=== PATIENT | female | born 1935 | race American Indian/Alaskan Native ===

== ENCOUNTER 2023-07-06 13:45 | Inpatient (IN) ==
[2023-06-26 12:21] LABS: Basophils # (Auto) 0.06 K/mcL (0.00-0.30); Basophils % (Auto) 0.5 % (0.0-2.0); Eosinophils # (Auto) 0.29 K/mcL (0.00-0.70); Eosinophils % (Auto) 2.6 % (0.0-7.0); Hematocrit 44.8 % (34.1-44.9); Lymphocytes # (Auto) 4.17 K/mcL (1.50-4.80); Lymphocytes % (Auto) 37.9 % (15.5-49.0); Mean Cell Volume 93.9 fL (80.0-100.0); Mean Corpuscular HGB Conc 31.3 g/dL (31.0-36.0); Monocytes # (Auto) 0.85 K/mcL (0.10-0.90); Monocytes % (Auto) 7.7 % (1.0-12.0); Neutrophils % (Auto) 50.2 % (38.0-78.0); Platelet Count 231 K/mcL (140-440); RBC 4.77 M/mcL (3.59-5.38); Red Cell Distribution Width 15.3 % (11.5-14.5)
[2023-06-26 12:45] LABS: Appearance,Urine Clear (Clear); Bacteria,Urine Mod /hpf (0); Bilirubin,Urine Negative (Negative); Color,Urine Light yellow; Culture Indicated,Urine Yes; Glucose,Urine (UA) Negative (Negative); Ketones,Urine Negative (Negative); Leukocyte Esterase,Urine Small /uL (Negative); Nitrate,Urine Negative (Negative); PH,Urine 6.5 (5.0-9.0); Protein,Urine Negative (Negative); Urine Blood Trace-intact ery/mcL (Negative); Urine RBC 0 /hpf (0-3); Urine Squamous Epithelial Cell 3 /hpf (0-4); Urine WBC 3 /hpf (0-4); Urobilinogen,Urine Normal
[2023-06-26 12:53] LABS: ALT/SGPT 24 U/L (<40); AST/SGOT 32 U/L (<32); Albumin 4.3 gm/dL (3.2-5.2); Albumin/Globulin Ratio 1.7 (1.0-2.3); Alkaline Phosphatase 93 U/L (39-117); Bilirubin,Total 0.8 mg/dL (0.1-1.0); Blood Urea Nitrogen 40 mg/dL (8-23); Calcium 10.2 mg/dL (8.6-10.4); Carbon Dioxide 28 mmol/L (22-30); Chloride 104 mmol/L (96-108); Globulin 2.6 gm/dL (2.2-3.7); Glomerular Filtration Rate 27; Glucose 89 mg/dL (70-105)
[2023-06-26 14:36] LABS: Estimated Average Glucose(eAG) 154 mg/dL
[2023-06-26 14:42] LABS: INR 0.9 (0.9-1.1); Prothrombin Time 12.3 sec (11.9-14.5)
[2023-07-24] MEDS ORDERED: IPRATROPIUM/ALBUTEROL 3 ML AMPUL.NEB NEB PRN ×2 (11:00→14:09)
[2023-07-24] MEDS: CELECOXIB 200 MG CAPSULE PO SCH (11:35)
[2023-07-24] MEDS: ACETAMINOPHEN 500 MG TABLET PO SCH (11:35)
[2023-07-24] MEDS: oxyCODONE 10 MG TAB.ER.12H PO SCH (11:35)
[2023-07-24] MEDS: SCOPOLAMINE 1 PATCH PATCH TOPICAL PRN (11:35)
[2023-07-24] MEDS: PREGABALIN 75 MG CAPSULE PO SCH (11:36)
[2023-07-24] MEDS ORDERED: PROPOFOL 200 MG/20 ML VIAL IV ONE (12:39)
[2023-07-24] MEDS ORDERED: ONDANSETRON 4 MG/2 ML VIAL ONE (12:39)
[2023-07-24] MEDS ORDERED: GLYCOPYRROLATE 0.2 MG/ML VIAL IV ONE ×2 (12:39→13:23)
[2023-07-24] MEDS ORDERED: LIDOCAINE 2% PF 5 ML VIAL ONE (12:39)
[2023-07-24] MEDS ORDERED: DEXAMETHASONE 10 MG/ML VIAL ONE (12:39)
[2023-07-24] MEDS ORDERED: KETAMINE 50 MG/ML Syringe IV ONE (12:59)
[2023-07-24] MEDS: ceFAZolin 2 GM in DEXTROSE 5% IN WATER 50 ML IV SCH (13:01)
[2023-07-24] MEDS ORDERED: ePHEDrine 50 MG/ML AMPUL IV ONE (13:23)
[2023-07-24] MEDS ORDERED: TRANEXAMIC ACID 1,000 MG/10 ML VIAL ONE (13:23)
[2023-07-24] MEDS: 0.9 % SODIUM CHLORIDE 9 ML, KETOROLAC 30 MG, ROPIVACAINE HCL/PF 49.5 ML, EPINEPHrine 0.... IJ SCH (13:44)
[2023-07-24] MEDS ORDERED: ONDANSETRON 4 MG/2 ML VIAL IV PRN (14:09)
[2023-07-24] MEDS ORDERED: BENZOCAINE/MENTHOL 1 LOZENGE PO PRN (14:22)
[2023-07-24] MEDS ORDERED: POLYETHYLENE GLYCOL 3350 17 GM PACKET PO PRN (14:22)
[2023-07-24] MEDS ORDERED: FLEETS ADULT 1 DOSE ENEMA PR PRN (14:22)
[2023-07-24] MEDS ORDERED: BISACODYL 10 MG SUPP.RECT PR PRN (14:22)
[2023-07-24] MEDS ORDERED: ACETAMINOPHEN 325 MG TABLET PO PRN (14:22)
[2023-07-24] MEDS ORDERED: MAGNESIUM HYDROXIDE 30 ML ORAL.SUSP PO PRN (14:22)
[2023-07-24] MEDS ORDERED: TEMAZEPAM 15 MG CAPSULE PO PRN (14:22)
[2023-07-24] MEDS: TRANEXAMIC ACID 1,000 MG/10 ML VIAL IV ONE (14:48)
[2023-07-24] MEDS: LACTATED RINGERS 1,000 ML IV SCH (15:27)
[2023-07-24] MEDS: TRANEXAMIC ACID 1,000 MG/10 ML VIAL ONE (15:28)
[2023-07-24] MEDS: 0.45 % SODIUM CHLORIDE 1,000 ML IV SCH (15:28)
[2023-07-24] MEDS ORDERED: ROPIVACAINE HCL/PF 30 ML VIAL IJ ONE (15:31)
[2023-07-24] MEDS ORDERED: DEXTROSE 50% 50 ML VIAL IV PRN (15:36)
[2023-07-24] MEDS ORDERED: DEXTROSE 31 GM ORAL.SUSP PO PRN (15:36)
[2023-07-24] MEDS: CARVEDILOL 6.25 MG TABLET PO SCH (17:03)
[2023-07-24] MEDS: ONDANSETRON 4 MG/2 ML VIAL IV PRN (17:04)
[2023-07-24] MEDS: INSULIN LISPRO 1 UNIT/0.01 ML UNIT SQ SCH (17:06)
[2023-07-24] MEDS: KETOROLAC 15 MG/ML VIAL IV SCH (17:10)
[2023-07-24] MEDS: ceFAZolin 1 GM VIAL IV SCH (21:31)
[2023-07-24] MEDS: DOCUSATE SODIUM 100 MG CAPSULE PO SCH (21:32)
[2023-07-24] MEDS: CYANOCOBALAMIN (VITAMIN B-12) 500 MCG TABLET PO SCH (21:32)
[2023-07-24] MEDS: SIMVASTATIN 40 MG TABLET PO SCH (21:32)
[2023-07-24] MEDS: ASPIRIN 81 MG TAB.CHEW PO SCH (21:32)
[2023-07-24] MEDS: SENNOSIDES 1 TABLET PO SCH (21:32)
[2023-07-24] MEDS: ALLOPURINOL 100 MG TABLET PO SCH (21:32)
[2023-07-24] MEDS: POTASSIUM CHLORIDE 20 MEQ/15 ML ML PO SCH (21:33)
[2023-07-24] MEDS: CALCIUM (OYSTER SHELL) 500 MG TABLET PO SCH (21:33)
[2023-07-24] MEDS: HYDROcodone/APAP 10/325MG TABLET PO PRN (21:33)
[2023-07-24] MEDS: 0.9 % SODIUM CHLORIDE 10 ML SYRINGE IV SCH (21:34)
[2023-07-25] MEDS: LEVOTHYROXINE 75 MCG TABLET PO SCH (07:32)
[2023-07-25] MEDS: TORSEMIDE 20 MG TABLET PO SCH (08:35)
[2023-07-25] MEDS: MIRABEGRON 25 MG PO SCH (08:36)
[2023-07-25] MEDS: INSULIN, 75/25 NPL/LISPRO 1 UNIT/0.01 ML UNIT SQ SCH (12:09)
[2023-07-26] MEDS ORDERED: ERGOCALCIFEROL (VITAMIN D2) 50,000 UNIT CAPSULE PO SCH (09:00)
== END 2023-07-25 12:25 | DRG 470 ==
LOC: MEDSUR 07-24 10:57
PROVIDERS: ADMIT Orthopaedic Surgery; ATTEND Orthopaedic Surgery